=== PATIENT | female | born 1940 | race Caucasian/White ===

== ENCOUNTER 2017-08-01 11:25 | Emergency (ER) | payer MEDICARE, OTHER ==
[~2017-08-01] VITALS: Ht 177.8 cm; Wt 61.2 kg
[~2017-08-01 11:25] MED LIST: ACE325 PO; AMLO2.5T74 PO; ASPI-1471 PO; ASPI-715 PO; ASPI81TA86 PO; AZIT-1 PO; CALC-762 PO; CHOL10005 PO; CHOL200021 PO; CYAN100088 PO; CYAN25004; ERGO2000 PO; EZET10TA41 PO; EZET1TAB53 PO; EZET1TAB55 PO; FISH OIL1 CAP PO; FLU180SY9 IM; HYDR-4309 PO; LEVO50TA80 PO; LEVO75TA68 PO; LEVO75TA73 PO; LEVO88TA43 PO; LEVO88TA45 PO; LOR5/325 PO; LOSA100T67 PO; LOSA100T68 PO; NIA500 PO; NIAC500T12 PO; NIT4 SL; NITR0.4T3 SL; OFF COUMADIN; OMEP-137 PO; OMEP-153 PO; PRAV10TA46 PO; ROS10 PO; ROSU5TAB8 PO; SIMV-1 PO; SIMV-54 PO; SULF-198 PO; TRIA5T TOP; VALS-25 PO; VALS160T20 PO; WAR5 PO; WAR75 PO; WARF-18 PO; [UNRECOGNIZED DRUG - CODE] PO; [UNRECOGNIZED DRUG - CODE] PO; [UNRECOGNIZED DRUG - CODE] PO; [UNRECOGNIZED DRUG - CODE] PO; [UNRECOGNIZED DRUG - REMARK]
--- NOTE | 2017-08-01 11:38 | ER Report ---
History and Physical Time Seen By MD: 11:37 Hx. of Stated Complaint: cough and weakness since thursday. associated body aches. patient just got off antibiotics for uti HPI/ROS CHIEF COMPLAINT: Cough, shortness of breath HISTORY OF PRESENT ILLNESS: 77-year-old female patient presents to emergency room with complaint of cough, shortness of breath. Patient states been going on for the past several days. Patient states that she felt worse Thursday, and felt better and Thursday and then she felt worse this morning when she woke up. Patient states she's been coughing. She states it is a dry cough. She denies having any fevers, chills, nausea, vomiting or diarrhea. Patient states that on Thursday she felt pain to the left arm, and was concerned about her heart. She states that she is taken some yhws-cig-pugbdbz cold medication with no improvement. Patient has a history of A. fib, she did have a bout of A. fib on and Thursday, however when that stopped last night she felt significant improvement. REVIEW OF SYSTEMS: Respiratory: No cough, no dyspnea. Cardiovascular: No chest pain, no palpitations. Gastrointestinal: No vomiting, no abdominal pain. Musculoskeletal: No back pain. Allergies: Coded Allergies: SHAHRZAD Inhibitors (Unverified Allergy, Intermediate, cough, 03/06/14) niacin (Verified Allergy, Intermediate, Itching, 12/02/16) clindamycin (Verified Allergy, Mild, DIARRHEA, 12/22/13) rosuvastatin (Verified Adverse Reaction, Intermediate, Muscle symptoms, 08/04/16) tetracycline (Verified Adverse Reaction, Intermediate, LOWERED BLOOD COUNT , 12/22/13) Uncoded Allergies: PABA (Allergy, Mild, 04/03/11) Home Meds Active Scripts Pravastatin Sodium (PRAVASTATIN SODIUM) 10 Mg Tablet, 10 MG PO QDAY for 30 Days , TAB Prov:DANUTA AGUILERA PHARMDoreen 07/08/17 Cholecalciferol (Vitamin D3) (VITAMIN D3) 1,000 Unit Tablet, 1 TAB PO DAILY, #1 TAB Prov:HANNAH BARAHONA MD 05/25/17 Sotalol Hcl (SOTALOL) 160 Mg Tablet, 1 TAB PO BID, #180 TAB 4 Refills Prov:HANNAH BARAHONA MD 02/20/17 Warfarin Sodium (WARFARIN SODIUM) 5 Mg Tablet, 1-1.5 TAB PO QDAY, #108 TAB 3 Refills take 1 tablet daily except 1.5 tablets on MWF or as instructed based on INR Prov:HANNAH BARAHONA MD 02/20/17 Levothyroxine Sodium (SYNTHROID) 88 Mcg Tablet, 0.5-1 TAB PO QDAY, #90 TAB 3 Refills Prov:HANNAH BARAHONA MD 02/20/17 Losartan Potassium (LOSARTAN POTASSIUM) 100 Mg Tablet, 1 TAB PO QDAY, #90 TAB 3 Refills Prov:HANNAH BARAHONA MD 02/20/17 Ezetimibe (ZETIA) 10 Mg Tablet, 10 MG PO QDAY, #90 TAB 3 Refills Prov:HANNAH BARAHONA MD 02/20/17 Nitroglycerin (NITROGLYCERIN) 0.4 Mg Tab.subl, 1 TAB SL Q5MIN Y for chest pain, #25 TAB 0 Refills Prov:HANNAH BARAHONA MD 02/20/17 Reported Medications Aspirin (ASPIR 81) 81 Mg Tablet.dr, 1 TAB PO QDAY, TAB 08/04/16 Cyanocobalamin (Vitamin B-12) (B-12) 1,000 Mcg Tablet.er, 1 TAB PO twice a week 08/04/16 Past Medical/Surgical History Patient has a past medical history of CAD, angina, intermittent A. fib, hypertension, hyperlipidemia, reflux, vaginal prolapse, arthritis, osteoporosis , hypothyroidism, anxiety. Patient has surgical history of left duct removed from left breast, foot surgery , hysterectomy, colonoscopy, laparoscopy, coronary stent. Patient has a family medical history of cancer, stroke, diabetes. Reviewed Nurses Notes: Yes Hx Smoking: No Smoking Status: Never Smoker Constitutional Vital Sign - Last 24 Hours 08/01/17 08/01/17 08/01/17 08/01/17 11:29 11:35 11:55 12:00 Temp 97.4 Pulse 58 58 Resp 20 11 B/P (MAP) 148/77 (100) 148/77 130/66 (87) Pulse Ox 96 95 O2 Delivery Room Air 08/01/17 08/01/17 08/01/17 08/01/17 12:25 12:37 12:55 13:00 Pulse 55 54 Resp 15 14 B/P (MAP) 148/76 (100) 142/105 (117) Pulse Ox 94 96 08/01/17 13:26 Pulse 54 B/P (MAP) 117/69 (85) Pulse Ox 95 O2 Delivery Room Air Physical Exam General Appearance: The patient is alert, has no immediate need for airway protection and no current signs of toxicity. ENT: Tympanic membranes are pearly-benoit, auditory canals are patent, mucous membranes are moist. Respiratory: Chest is non tender, lungs are clear to auscultation. Cardiac: regular rate and rhythm Gastrointestinal: Abdomen is soft and non tender, no masses, bowel sounds normal. Musculoskeletal: Neck: Neck is supple and non tender. Extremities have full range of motion and are non tender. Skin: No rashes or lesions. DIFFERENTIAL DIAGNOSIS: After history and physical exam differential diagnosis was considered for shortness of breath including but not limited to pulmonary infectious process, COPD, asthma, pulmonary embolus and congestive heart failure. Medical Decision Making Data Points Result Diagram: 08/01/17 1133 08/01/17 1133 Laboratory Hematology Test 08/01/17 00:00 08/01/17 11:33 Influenza Type A Antigen Negative (NEGATIVE) Influenza Type B Antigen Negative (NEGATIVE) Red Blood Count 3.94 M/uL (4.17-5.56) Mean Corpuscular Volume 96.9 fL (80.0-96.0) Mean Corpuscular Hemoglobin 33.5 pg (26.0-33.0) Mean Corpuscular Hemoglobin Concent 34.5 g/dL (32.0-36.0) Red Cell Distribution Width 12.9 % (11.5-14.5) Mean Platelet Volume 8.7 fL (7.2-11.1) Neutrophils (%) (Auto) 68.3 % (39.4-72.5) Lymphocytes (%) (Auto) 15.9 % (17.6-49.6) Monocytes (%) (Auto) 8.2 % (4.1-12.4) Eosinophils (%) (Auto) 7.1 % (0.4-6.7) Basophils (%) (Auto) 0.5 % (0.3-1.4) Nucleated RBC Relative Count (auto) 0.0 /100WBC Neutrophils # (Auto) 5.3 K/uL (2.0-7.4) Lymphocytes # (Auto) 1.2 K/uL (1.3-3.6) Monocytes # (Auto) 0.6 K/uL (0.3-1.0) Eosinophils # (Auto) 0.6 K/uL (0.0-0.5) Basophils # (Auto) 0.0 K/uL (0.0-0.1) Nucleated RBC Absolute Count (auto) 0.00 K/uL Peripheral Blood Smear No Y/N Prothrombin Time 33.2 seconds (12.0-14.4) Prothromb Time International Ratio 3.11 Sodium Level 134 mmol/L (137-145) Potassium Level 4.4 mmol/L (3.5-5.0) Chloride Level 100 mmol/L (98-107) Carbon Dioxide Level 25 mmol/L (22-31) Blood Urea Nitrogen 17 mg/dl (7-18) Creatinine 1.00 mg/dl (0.52-1.04) Glomerular Filtration Rate Calc 53.5 Random Glucose 99 mg/dl (75-110) Calcium Level 8.8 mg/dl (8.4-10.2) Total Bilirubin 0.9 mg/dl (0.2-1.3) Aspartate Amino Transf (AST/SGOT) 30 U/L (0-35) Alanine Aminotransferase (ALT/SGPT) 39 U/L (0-56) Alkaline Phosphatase 67 U/L (0-126) Troponin I < 0.012 ng/ml Total Protein 6.9 gm/dl (6.3-8.2) Albumin 3.5 g/dl (3.5-5.0) Chemistry Test 08/01/17 00:00 08/01/17 11:33 Influenza Type A Antigen Negative (NEGATIVE) Influenza Type B Antigen Negative (NEGATIVE) White Blood Count 7.8 k/uL (4.5-11.0) Red Blood Count 3.94 M/uL (4.17-5.56) Hemoglobin 13.2 g/dL (12.0-16.0) Hematocrit 38.2 % (34.0-47.0) Mean Corpuscular Volume 96.9 fL (80.0-96.0) Mean Corpuscular Hemoglobin 33.5 pg (26.0-33.0) Mean Corpuscular Hemoglobin Concent 34.5 g/dL (32.0-36.0) Red Cell Distribution Width 12.9 % (11.5-14.5) Platelet Count 194 K/uL (150-450) Mean Platelet Volume 8.7 fL (7.2-11.1) Neutrophils (%) (Auto) 68.3 % (39.4-72.5) Lymphocytes (%) (Auto) 15.9 % (17.6-49.6) Monocytes (%) (Auto) 8.2 % (4.1-12.4) Eosinophils (%) (Auto) 7.1 % (0.4-6.7) Basophils (%) (Auto) 0.5 % (0.3-1.4) Nucleated RBC Relative Count (auto) 0.0 /100WBC Neutrophils # (Auto) 5.3 K/uL (2.0-7.4) Lymphocytes # (Auto) 1.2 K/uL (1.3-3.6) Monocytes # (Auto) 0.6 K/uL (0.3-1.0) Eosinophils # (Auto) 0.6 K/uL (0.0-0.5) Basophils # (Auto) 0.0 K/uL (0.0-0.1) Nucleated RBC Absolute Count (auto) 0.00 K/uL Peripheral Blood Smear No Y/N Prothrombin Time 33.2 seconds (12.0-14.4) Prothromb Time International Ratio 3.11 Glomerular Filtration Rate Calc 53.5 Calcium Level 8.8 mg/dl (8.4-10.2) Total Bilirubin 0.9 mg/dl (0.2-1.3) Aspartate Amino Transf (AST/SGOT) 30 U/L (0-35) Alanine Aminotransferase (ALT/SGPT) 39 U/L (0-56) Alkaline Phosphatase 67 U/L (0-126) Troponin I < 0.012 ng/ml Total Protein 6.9 gm/dl (6.3-8.2) Albumin 3.5 g/dl (3.5-5.0) Coagulation Test 08/01/17 11:33 Prothrombin Time 33.2 seconds Prothromb Time International Ratio 3.11 EKG/Imaging EKG Interpretation 12 lead EKG: Rhythm: Sinus bradycardia with a ventricular rate of 57 bpm [place]: normal QRS: normal ST segments: normal Imaging 2 VIEWS CHEST INDICATION: Respiratory distress. COMPARISON: 10/20/2016. FINDINGS: Cardiomediastinal silhouette and pulmonary vessels within normal limits. There is a persistent nodular density seen in the left lower lobe which is unchanged. This appears to be more dense and possibly calcified. No focal areas of consolidation. Postinflammatory changes seen in both apices. There is no pneumothorax or pleural effusion. No other nodular opacities. Upper abdomen is unremarkable. No acute bony abnormality. IMPRESSION: 1. No acute cardiopulmonary process. 2. Persistent nodular opacity seen in the left lower lobe which may be calcified. This could represent a calcified pleural plaque.. It may be beneficial to perform a follow-up chest x-ray in 6 months for reevaluation as this does appear to be stable from September 2016 but was not appreciated back in 2010. Report Dictated By: López Latham at 08/01/2017 12:43 PM Report E-Signed By: López Latham at 08/01/2017 12:48 PM ED Course/Re-evaluation ED Course Patient was admitted to exam room, history and physical were obtained. Differential diagnoses were considered. On examination patient has lungs are clear, abdomen soft nontender. A CBC, CMP, and influenza screen, chest x-ray, troponin, EKG were done. Chest x-ray was negative, labs were unremarkable. I discussed findings with the patient. [place] there were likely looking at a viral illness. We'll go ahead and treat her symptomatically. She is return to emergency room if condition worsens. As I was talking with the patient patient asked what her INR was. I was disheartened to admit the head failed to order a INR. That was ordered and came back at 3.11. I discussed findings with patient. Patient states she'll go ahead and continue taking medication as prescribed and she'll follow-up with her primary care provider as previously scheduled in 1-2 weeks. Decision to Disposition Date: Aug 01, 2017 Decision to Disposition Time: 13:05 Depart Departure Latest Vital Signs Vital Signs Date Time Temp Pulse Resp B/P (MAP) Pulse Ox O2 Delivery O2 Flow Rate FiO2 08/01/17 13:26 54 117/69 (85) 95 Room Air 08/01/17 12:55 14 08/01/17 11:35 97.4 Impression: Primary Impression: Upper respiratory infection Condition: Improved Disposition: HOME OR SELF-CARE Referrals: HANNAH BARAHONA MD (PCP) Patient Instructions: Upper Respiratory Infection (ED) Additional Instructions: Increase fluid intake. Get plenty of rest. Follow up with your primary care provider in the next week. Continue with your current medications. Return to the ER if condition worsens. Problem Qualifiers Primary Impression: Upper respiratory infection URI type: unspecified viral URI Qualified Codes: J06.9 - Acute upper respiratory infection, unspecified LAYA JOLLY Aug 01, 2017 11:38
[2017-08-01 11:58] LABS: PLATELET COUNT, AUTOMATED 194 K/uL (150-450)
--- NOTE | 2017-08-01 12:26 | EKG ---
FACILITY: [facility] - [place] PATIENT NAME: EDITH FREITAS : [id number] MR: [id number] V: [id number] EXAM DATE: ORDERING PHYSICIAN: LAYA JOLLY TECHNOLOGIST: YAEL Villarreal Reason : PNA? Blood Pressure : / mmHG Vent. Rate : 057 BPM Atrial Rate : 057 BPM P-R Int : 180 ms QRS Dur : 086 ms QT Int : 464 ms P-R-T Axes : 074 064 064 degrees QTc Int : 451 ms Sinus bradycardia Nonspecific ST findings diffusely No previous ECGs available Confirmed by DARNELL DAVIES ([id number]) on 08/01/2017 12:57:23 PM Referred By: LAYA Confirmed By:DARNELL DAVIES
--- NOTE | 2017-08-01 12:53 | RADIOLOGY IMAGING REPORT ---
FACILITY: [facility] [place] PATIENT NAME: Nazanin Castro : 1940 MR: [id number] V: [id number] EXAM DATE: ORDERING PHYSICIAN: LAYA JOLLY TECHNOLOGIST: Location: [facility] [place] Patient: Nazanin Castro : 1940 Visit/Account:[id number] Date of Sevice: 08/01/2017 2 VIEWS CHEST INDICATION: Respiratory distress. COMPARISON: 10/20/2016. FINDINGS: Cardiomediastinal silhouette and pulmonary vessels within normal limits. There is a persistent nodular density seen in the left lower lobe which is unchanged. This appears to be more dense and possibly calcified. No focal areas of consolidation. Postinflammatory changes seen in both apices. There is no pneumothorax or pleural effusion. No other nodular opacities. Upper abdomen is unremarkable. No acute bony abnormality. IMPRESSION: 1. No acute cardiopulmonary process. 2. Persistent nodular opacity seen in the left lower lobe which may be calcified. This could represen t a calcified pleural plaque.. It may be beneficial to perform a follow-up chest x-ray in 6 months fo r reevaluation as this does appear to be stable from September 2016 but was not appreciated back in 2010. Report Dictated By: López Latham at 08/01/2017 12:43 PM Report E-Signed By: López Latham at 08/01/2017 12:48 PM WSN:[id number]
[2017-08-01 13:13] LABS: INR 3.11
[2017-08-01 13:26] VITALS: BP 117/69
== END 2017-08-01 13:31 | disposition home or self-care (01) ==
LOC: ER 11:35
DX: J06.9 Acute upper respiratory infection, unspecified (principal)
CPT/HCPCS: 71046; 82040; 82247; 82310; 82374; 82435; 82565; 82947; 84075; 84132; 84155; 84295; 84450; 84460; 84484; 84520; 85025; 85610; 87502; 93005; 99284

== ENCOUNTER → 2017-08-10 | Outpatient (CLI) | payer MEDICARE, OTHER | LOC: LAB 09:41 | PROVIDERS: ATTEND Internal Medicine Cardiovascular Disease | DX: I25.10 Atherosclerotic heart disease of native coronary artery without angina pectoris (principal); I48.0 Paroxysmal atrial fibrillation; I10 Essential (primary) hypertension | CPT/HCPCS: 36415; 82550 ==

== ENCOUNTER → 2017-10-07 | Outpatient (CLI) | payer MEDICARE, OTHER ==
[~2017-10-07] MED LIST changes: -WARF-18 PO; +WARF5TAB23 PO
--- NOTE | 2017-10-07 10:21 | RADIOLOGY IMAGING REPORT ---
FACILITY: [facility] - [place] PATIENT NAME: Nazanin Castro : 1940 MR: [id number] V: [id number] EXAM DATE: ORDERING PHYSICIAN: HANNAH BARAHONA TECHNOLOGIST: Location: [facility] - [place] Patient: Nazanin Castro : 1940 Visit/Account:[id number] Date of Sevice: 10/07/2017 LIVER HISTORY: Elevated liver enzymes recent statin COMPARISON: None. FINDINGS: Gallbladder: Unremarkable; no stones or sludge. Liver: Negative. Common duct: Normal, 3.5 mm diameter. Pancreas: Partially obscured by bowel, visualized aspects unremarkable. Right kidney: Right kidney appears unremarkable measuring 12.5 cm in length Upper abdominal aorta and IVC: Patent. Ascites: None visualized. IMPRESSION: Unremarkable right upper quadrant ultrasound Report Dictated By: Jessika Alvarez MD at 10/07/2017 10:14 AM Report E-Signed By: Jessika Alvarez MD at 10/07/2017 10:16 AM WSN:[email or web address]
== END ==
LOC: US 01:18
PROVIDERS: ATTEND Emergency Medicine
DX: R74.8 Abnormal levels of other serum enzymes (principal)
CPT/HCPCS: 76705

== ENCOUNTER → 2017-12-10 | Outpatient (CLI) | payer MEDICARE, OTHER ==
[~2017-12-10] MED LIST changes: +FAMC500T18 PO; +LEVO25TA61 PO; +PRED-1 PO
== END ==
LOC: LAB 15:30
PROVIDERS: ATTEND Emergency Medicine
DX: E03.9 Hypothyroidism, unspecified (principal)
CPT/HCPCS: 36415; 84443

== ENCOUNTER → 2017-12-11 | Outpatient (CLI) | payer MEDICARE, OTHER | LOC: AUD 08:27 | PROVIDERS: ATTEND Emergency Medicine | DX: H91.20 Sudden idiopathic hearing loss, unspecified ear (principal) | CPT/HCPCS: 92557; 92570 ==

== ENCOUNTER → 2017-12-18 | Outpatient (CLI) | payer MEDICARE, OTHER | LOC: AUD 14:00 | PROVIDERS: ATTEND Otolaryngology | DX: H91.91 Unspecified hearing loss, right ear (principal) | CPT/HCPCS: 92552 ==

== ENCOUNTER → 2017-12-25 | Outpatient (CLI) | payer MEDICARE, OTHER ==
[~2017-12-25] MED LIST changes: +GADOBENATE 529MG/1ML 15ML VIAL IVP ONE
--- NOTE | 2017-12-25 15:33 | RADIOLOGY IMAGING REPORT ---
FACILITY: [facility] - [place] PATIENT NAME: Nazanin Castro : 1940 MR: [id number] V: [id number] EXAM DATE: ORDERING PHYSICIAN: KATRIN MENCHACA TECHNOLOGIST: Location: [facility] - [place] Patient: Nazanin Castro : 1940 Visit/Account:[id number] Date of Sevice: 12/25/2017 SELLA IAC W W/O CONTRAST Comparisons: None. Additional pertinent history: Sensorineural hearing loss on the right. Also history of sinus congest ion. TECHNIQUE: Multiplanar, multisequence brain MRI was performed with and without gadolinium contrast. Dedicated thin section imaging was performed through the internal auditory canals with axial and johana nal imaging. CONTRAST: 14 ml of MultiHance. FINDINGS: Sagittal midline structures and craniocervical junction: Negative. Midline shift: None. Ventricles: Negative. Brain parenchyma: Diffusion weighted imaging: Negative. Gradient sequence: Not performed T2 weighted FLAIR images: Scattered foci of abnormal increased T2 signal within the periventricular and subcortical white matter, nonspecific but likely representing small vessel ischemic change on a chronic basis. Dedicated imaging through the internal auditory canals: Seventh and eighth cranial nerves: Negative. Semicircular canals/cochlea: Negative Fifth cranial nerves/Meckel's caves: Negative Cerebellopontine angles: Negative Pathologic enhancement: Negative Extra-axial spaces: Negative. Dural venous sinuses and major arterial flow voids: Negative. Intracranial enhancement: Negative.. Mastoid air cells and paranasal sinuses: Complete opacification of the right maxillary sinus with fin dings compatible with nonobstructive pattern at the level of the right ostiomeatal complex with opaci fication of the anterior ethmoid air cells and the right frontal sinus. There is enhancement of the underlying mucosal without a clearly evident enhancing mass. Polypoid lesion is felt present within the region of the right maxillary antrum which could represent an antrochoanal polyp. CT the paranas al sinuses would be of benefit for further evaluation. Surrounding soft tissues and orbits: Negative. Impression: 1. Findings of obstruction at the level of the right ostiomeatal complex with opacification of the r ight maxillary sinus as well as the anterior right ethmoid air cells and the right frontal sinus. 2. Expansile lesion felt present in the region of the right maxillary antrum which could represent u nderlying antrochoanal polyp. CT the paranasal sinuses would be of benefit for further evaluation. 3. No evidence of acute intracranial pathology. 4. Normal imaging of the internal auditory canals. Report Dictated By: Presley Narvaez MD at 12/25/2017 3:23 PM Report E-Signed By: Presley Narvaez MD at 12/25/2017 3:28 PM WSN:[id number]
== END ==
LOC: MRI 00:15
PROVIDERS: ATTEND Otolaryngology
DX: J32.0 Chronic maxillary sinusitis (principal)
CPT/HCPCS: 36415; 70553; 82565; A9577

== ENCOUNTER → 2017-12-29 | Outpatient (CLI) | payer MEDICARE, OTHER ==
[~2017-12-29] MED LIST changes: -GADOBENATE 529MG/1ML 15ML VIAL IVP ONE
== END ==
LOC: AUD 12:20
PROVIDERS: ATTEND Otolaryngology
DX: H90.41 Sensorineural hearing loss, unilateral, right ear, with unrestricted hearing on the contralateral side (principal)
CPT/HCPCS: 92552

== ENCOUNTER → 2018-01-26 | Outpatient (CLI) | payer MEDICARE, OTHER ==
[~2018-01-26] MED LIST changes: +LEVO50TA86 PO
== END ==
LOC: LAB 09:32
PROVIDERS: ATTEND Emergency Medicine
DX: E03.9 Hypothyroidism, unspecified (principal)
CPT/HCPCS: 36415; 84443

== ENCOUNTER 2018-02-15 01:26 | Outpatient (RCR) | payer MEDICARE, OTHER ==
[2018-02-15] MEDS ORDERED: [UNRECOGNIZED DRUG - CODE] PO (08:39)
[2018-02-15] MEDS ORDERED: LOSA100T67 PO (08:43)
[2018-02-15] MEDS ORDERED: REGADENOSON 0.4 MG/5 ML SYR ONE (12:16)
--- NOTE | 2018-02-15 16:33 | RT STRESS TEST REPORT ---
FACILITY: [facility] PATIENT NAME: EDITH FREITAS : [id number] MR: [id number] V: [id number] EXAM DATE: ORDERING PHYSICIAN: DARNELL DAVIES TECHNOLOGIST: Acquisition Time: 2018-02-15 14:25:46 Total Exercise Time: 00:01:00 Test Indications: Screening for CAD Medications: ASA ZETIA LOSARTAN NITRO WARFARIN SOTALOL SYNTHROID Protocol: LEXISCAN Max HR: 076 BPM 53% of Pred: 141 BPM Max BP: 198/090 mmHG Max Work Load: 1.0 METS Stress was performed using Lexiscan protocol. She experienced some chest tightness and some tightness in her limbs as well. This persisted for several minutes before resolving. No EKG changes were noted. No dysrhythmias were noted. Await [employer] w images. Confirmed by DARNELL DAVIES ([id number]) on 02/15/2018 4:32:33 PM Referred By: ALLIE HITCHCOCK Overread By: DARNELL DAVIES
--- NOTE | 2018-02-16 17:56 | RADIOLOGY IMAGING REPORT ---
FACILITY: [facility] PATIENT NAME: Nazanin Castro : 1940 MR: [id number] V: [id number] EXAM DATE: ORDERING PHYSICIAN: ALLIE HITCHCOCK TECHNOLOGIST: Location: [facility] - [place] Patient: Nazanin Castro : 1940 Visit/Account:[id number] Date of Sevice: 02/15/2018 EXAMINATION: Single isotope SPECT imaging with Regadenoson infusion and gated SPECT imaging. DATE OF EXAMINATION: February 16, 2018. DATE OF INTERPRETATION: February 16, 2018. REQUESTING PHYSICIAN: ALLIE HITCHCOCK. INDICATION: The patient is a 77-year-old female evaluated for CAD. PROCEDURE: After informed consent the patient received an intravenous injection of 12.2 mCi of Tc-99 m sestamibi followed at an appropriate time interval by rest imaging. The patient then subsequently received an intravenous infusion of 0.4 mg of Regadenoson per protocol without complication. Resting heart rate was 51 bpm with a peak heart rate of 76 bpm. Blood pressure at rest was 198 / 90 and fol lowing infusion was 137 / 77. Baseline EKG demonstrates normal sinus rhythm. There were no diagnost ic EKG changes of ischemia following infusion. Symptoms were nonspecific. The patient then received an intravenous injection of 30.4 mCi of Tc-99m sestamibi followed by stress imaging. RAW DATA: Examination of the summed raw data revealed a good quality study. MYOCARDIAL PERFUSION: The tomographic images demonstrate normal perfusion both at rest and at stress . GATED IMAGES: The gated images demonstrate an ejection fraction calculated at 70% or greater without wall motion abnormalities. IMPRESSION: 1. Baseline EKG shows normal sinus rhythm without significant changes during stress. 2. Normal myocardial perfusion scan. 3. Normal LV systolic function; LVEF hyperdynamic at 70% or greater%. 4. Based on the results of this exam, the patient appears to be at low risk for future cardiovascular events. Report Dictated By: Phillip Carter MD at 02/16/2018 5:49 PM Report E-Signed By: Phillip Carter MD at 02/16/2018 5:52 PM WSN:[id number]
--- NOTE | 2018-02-17 13:00 | RADIOLOGY IMAGING REPORT ---
FACILITY: [facility] PATIENT NAME: Nazanin Castro : 1940 MR: [id number] V: [id number] EXAM DATE: ORDERING PHYSICIAN: ALLIE HITCHCOCK TECHNOLOGIST: Location: [facility] Patient: Nazanin Castro : 1940 Visit/Account:[id number] Date of Sevice: 02/17/2018 Exam type: ARTERIAL SEGMENTAL PRESSURES History: Burning sensation of the feet Comparison: None. Findings: Segmental pressure in the right brachial artery is 199 mmHg. The segmental pressure in the left brac hial artery is 179 mmHg. In the right leg there is a pressure gradient of 38 between the right thigh and above the right knee. There is a pressure gradient of 32 from below the right knee to the right posterior tibial artery. The ankle-brachial index on the right is 0.94. The TBI on the right is 0.91 There is a pressure gradient of 34 between the left ankle and the left dorsalis pedis artery. CRYSTAL on the left is 0.99 and the TBI on the left is 0.83 There is mild dampening of the PVR waveforms at the great toes IMPRESSION: 1. There is a pressure gradient of 38 between the right thigh and above the right knee There is a pressure gradient of 32 below the right knee to the right posterior tibial artery Is a pressure gradient of 34 between the left ankle on the left results pedis artery CRYSTAL on the right 0.94 and on the left 0.99 TBI in the right 0.91 and on the left 0.83 Report Dictated By: Jessika Alvarez MD at 02/17/2018 11:29 AM Report E-Signed By: Jessika Alvarez MD at 02/17/2018 12:56 PM WSN:[email or web address]
[2018-02-23] MEDS ORDERED: EZET10TA41 PO (10:19)
[2018-02-23] MEDS ORDERED: VARI50KI IM (10:27)
== END 2018-02-17 18:00 | disposition home or self-care (01) ==
LOC: US 01:26 → EDSTATUS 14:00 → US 18:00
PROVIDERS: ATTEND Internal Medicine Cardiovascular Disease
DX: I25.10 Atherosclerotic heart disease of native coronary artery without angina pectoris (principal); R20.8 Other disturbances of skin sensation
CPT/HCPCS: 78452; 93017; 93923; A9500; J2785

== ENCOUNTER → 2018-03-11 | Outpatient (CLI) | payer MEDICARE, OTHER ==
[~2018-03-11] MED LIST changes: +VARI50KI IM
== END ==
LOC: LAB 08:59
PROVIDERS: ATTEND Emergency Medicine
DX: E03.9 Hypothyroidism, unspecified (principal)
CPT/HCPCS: 36415; 84443

== ENCOUNTER 2018-05-04 11:59 | Emergency (ER) | payer MEDICARE, OTHER ==
[~2018-05-04 11:59] MED LIST changes: -AMLO2.5T74 PO; +AMLO2.5T76 PO; +CEFU500T10 PO; +FLU180SY11 IM; -HYDR-4309 PO; +HYDR-653 PO; -LOSA100T67 PO; +LOSA100T69 PO
--- NOTE | 2018-05-04 13:29 | ER Report ---
History and Physical Time Seen By MD: 13:29 Hx. of Stated Complaint: TWISTED l ANKLE IN PARKING LOT OF [facility], AT 1130 TODAY HPI/ROS This is an 78-year-old female on Coumadin for atrial fibrillation who presents to the emergency department with pain in her left ankle after sustaining an inversion injury while walking through a parking lot today. Allergies: Coded Allergies: niacin (Verified Allergy, Intermediate, Itching, RASH, 05/15/18) SHAHRZAD Inhibitors (Unverified Adverse Reaction, Intermediate, cough, 05/15/18) Xbfrbch-Beg-Mmx Reductase Inhibitor (Verified Adverse Reaction, Intermediate, WEAKNESS IN LEGS, 05/15/18) rosuvastatin (Verified Adverse Reaction, Intermediate, Muscle symptoms, 05/15/18) tetracycline (Verified Adverse Reaction, Intermediate, LOWERED BLOOD COUNT, 05/15/18) clindamycin (Verified Adverse Reaction, Mild, DIARRHEA, 05/15/18) Uncoded Allergies: PABA (Allergy, Mild, RASH, 03/31/18) FOUND IN SUN SCREENS Home Meds Active Scripts Warfarin Sodium (WARFARIN SODIUM) 5 Mg Tablet, 1-1.5 TAB PO QDAY, #96 TAB 3 Refills take 1 tablet daily except 1.5 tablets on MWF or as instructed based on INR Prov:HANNAH BARAHONA MD 05/12/18 Levothyroxine Sodium (LEVOTHYROXINE SODIUM) 50 Mcg Tablet, 50 MCG PO QDAY, #90 TAB 3 Refills Prov:HANNAH BARAHONA MD 03/11/18 Ezetimibe (ZETIA) 10 Mg Tablet, 10 MG PO QDAY, #90 TAB 3 Refills Prov:HANNAH BARAHONA MD 02/23/18 Losartan Potassium (LOSARTAN POTASSIUM) 100 Mg Tablet, 1 TAB PO QDAY, #90 TAB 3 Refills Prov:HANNAH BARAHONA MD 02/15/18 Sotalol Hcl (SOTALOL) 160 Mg Tablet, 1 TAB PO BID, #180 TAB 3 Refills Prov:HANNAH BARAHONA MD 02/15/18 Cholecalciferol (Vitamin D3) (VITAMIN D3) 1,000 Unit Tablet, 1 TAB PO DAILY, #1 TAB Prov:HANNAH BARAHONA MD 05/25/17 Nitroglycerin (NITROGLYCERIN) 0.4 Mg Tab.subl, 1 TAB SL Q5MIN PRN for chest pain, #25 TAB 0 Refills Prov:HANNAH BARAHONA MD 02/20/17 Reported Medications Aspirin (ASPIR 81) 81 Mg Tablet.dr, 1 TAB PO QDAY, TAB 08/04/16 Cyanocobalamin (Vitamin B-12) (B-12) 1,000 Mcg Tablet.er, 1 TAB PO twice a week 08/04/16 Discontinued Scripts Cephalexin 500 Mg Tab (KEFLEX 500 MG TAB) 500 Mg Tablet, 500 MG PO Q6H, #28 TAB 0 Refills Prov:LAURENT CLINTONSON Fiorella TOURIST INFORMATION OFFICER-BC 05/15/18 Hx Smoking: No Smoking Status: Never Smoker Exposure to Second Hand Smoke?: Yes (IN CHILDHOOD) Hx Substance Use Disorder: No Hx Alcohol Use: No Constitutional Physical Exam GE: a/ox3 in NAD EX: TTP at the medial and lateral malleolus, pulses symmetric, no lacerations Medical Decision Making ED Course/Re-evaluation ED Course closed fracture of ankle, will splint and f/u with PBJ Decision to Disposition Date: May 04, 2018 Decision to Disposition Time: 15:20 Depart Departure Latest Vital Signs Impression: Primary Impression: Fibula fracture Condition: Improved Disposition: HOME OR SELF-CARE Referrals: HANNAH BARAHONA MD (PCP) Patient Instructions: Leg Fracture (ED) Problem Qualifiers Primary Impression: Fibula fracture Encounter type: initial encounter Fibula location: distal Fracture type: closed Fracture morphology: unspecified fracture morphology Laterality: left Qualified Codes: S82.832A - Other fracture of upper and lower end of left fibula, initial encounter for closed fracture AARON DAVID MD May 04, 2018 13:29
--- NOTE | 2018-05-04 13:30 | RADIOLOGY IMAGING REPORT ---
FACILITY: [facility] PATIENT NAME: Nazanin Castro : 1940 MR: [id number] V: [id number] EXAM DATE: ORDERING PHYSICIAN: JANET DAVID TECHNOLOGIST: Location: [facility] Patient: Nazanin Castro : 1940 Visit/Account:[id number] Date of Sevice: 05/04/2018 Exam type: ANKLE 3 VIEW MIN LEFT History: TWISTED AND FELL Comparison: None. Findings: Is a slightly comminuted oblique fracture through the distal metaphysis of the left fibula with appro ximate 2 mm diastases the fracture fragments and minimal lateral displacement of distal fragment. Th e ankle mortise appears intact. There is a large amount soft tissue swelling over the lateral aspect of the left ankle. Incidentally noted are old postsurgical changes of the base of the left fifth me tatarsal with orthopedic screw IMPRESSION: 1. Slightly comminuted oblique fracture through the distal metaphysis left fibula with approximate 2 mm diastases the fracture fragments and minimal lateral displacement of the distal fragment. There is associated soft tissue swelling. The ankle mortise appears intact Report Dictated By: Jessika Alvarez MD at 05/04/2018 1:24 PM Report E-Signed By: Jessika Alvarez MD at 05/04/2018 1:26 PM WSN:[email or web address]
[2018-05-04 15:19] VITALS: BP 173/86
[2018-05-12] MEDS ORDERED: WARF5TAB23 PO (12:28)
== END 2018-05-04 15:45 | disposition home or self-care (01) ==
LOC: ER 13:34
DX: S82.832A Other fracture of upper and lower end of left fibula, initial encounter for closed fracture (principal); X50.1XXA Overexertion from prolonged static or awkward postures, initial encounter
CPT/HCPCS: 99283; L1930

== ENCOUNTER 2018-05-15 11:14 | Emergency (ER) | payer MEDICARE, OTHER ==
--- NOTE | 2018-05-15 11:23 | ER Report ---
History and Physical Time Seen By MD: 11:23 HPI/ROS CHIEF COMPLAINT: Pain and swelling in the left foot HISTORY OF PRESENT ILLNESS: This is an 78-year-old female presents to the emergency department for pain and swelling of the left foot and lateral malleolus. Patient was recently seen and evaluated in the ED, had a nondisplaced fibular fracture, has followed up with or so, she did have a blister this last week that they did drain on the lateral malleolar area that is now causing some increased pain and swelling as well as increased redness. She also has intermittent left calf pain with significant bruising to the left lower extremity. Patient's left foot is immobilized in a walking boot. Patient is also anticoagulated on Coumadin. Patient denies nausea or vomiting. No chest pain or shortness of breath. No fevers or chills. REVIEW OF SYSTEMS: Respiratory: No cough, no dyspnea. Cardiovascular: No chest pain, no palpitations. Gastrointestinal: No vomiting, no abdominal pain. Musculoskeletal: As above. Allergies: Coded Allergies: niacin (Verified Allergy, Intermediate, Itching, RASH, 05/15/18) SHAHRZAD Inhibitors (Unverified Adverse Reaction, Intermediate, cough, 05/15/18) Qscvbsu-Bsr-Cxs Reductase Inhibitor (Verified Adverse Reaction, Intermediate, WEAKNESS IN LEGS, 05/15/18) rosuvastatin (Verified Adverse Reaction, Intermediate, Muscle symptoms, 05/15/18) tetracycline (Verified Adverse Reaction, Intermediate, LOWERED BLOOD COUNT, 05/15/18) clindamycin (Verified Adverse Reaction, Mild, DIARRHEA, 05/15/18) Uncoded Allergies: PABA (Allergy, Mild, RASH, 03/31/18) FOUND IN SUN SCREENS Home Meds Active Scripts Cephalexin 500 Mg Tab (KEFLEX 500 MG TAB) 500 Mg Tablet, 500 MG PO Q6H, #28 TAB 0 Refills Prov:KEL CLINTON RUBBER CUTTER-BC 05/15/18 Warfarin Sodium (WARFARIN SODIUM) 5 Mg Tablet, 1-1.5 TAB PO QDAY, #96 TAB 3 Refills take 1 tablet daily except 1.5 tablets on MWF or as instructed based on INR Prov:AHNNAH BARAHONA MD 05/12/18 Levothyroxine Sodium (LEVOTHYROXINE SODIUM) 50 Mcg Tablet, 50 MCG PO QDAY, #90 TAB 3 Refills Prov:HANNAH BARAHONA MD 03/11/18 Ezetimibe (ZETIA) 10 Mg Tablet, 10 MG PO QDAY, #90 TAB 3 Refills Prov:HANNAH BARAHONA MD 02/23/18 Losartan Potassium (LOSARTAN POTASSIUM) 100 Mg Tablet, 1 TAB PO QDAY, #90 TAB 3 Refills Prov:HANNAH BARAHONA MD 02/15/18 Sotalol Hcl (SOTALOL) 160 Mg Tablet, 1 TAB PO BID, #180 TAB 3 Refills Prov:HANNAH BARAHONA MD 02/15/18 Cholecalciferol (Vitamin D3) (VITAMIN D3) 1,000 Unit Tablet, 1 TAB PO DAILY, #1 TAB Prov:HANNAH BARAHONA MD 05/25/17 Nitroglycerin (NITROGLYCERIN) 0.4 Mg Tab.subl, 1 TAB SL Q5MIN PRN for chest pain, #25 TAB 0 Refills Prov:HANNAH BARAHONA MD 02/20/17 Reported Medications Aspirin (ASPIR 81) 81 Mg Tablet.dr, 1 TAB PO QDAY, TAB 08/04/16 Cyanocobalamin (Vitamin B-12) (B-12) 1,000 Mcg Tablet.er, 1 TAB PO twice a week 08/04/16 Past Medical/Surgical History The patient has a past medical and surgical history of coronary artery disease, stent placement, mitral valve prolapse, angina, intermittent A. fib, anticoagulation, hypertension, hypercholesterolemia, pneumonia, acid reflux, elevated liver enzymes, kidney stones, urinary tract infections, pelvic prolapse, chronic leg pain and weakness, poor balance, arthritis, osteoporosis, fractures to both feet, back pain, ruptured disc, sciatica, wears glasses, cataract removal, tinnitus, anxiety, colonoscopy, laparoscopy, left foot surgery, sinus surgery, tonsillectomy, left Dr. removed from breast. Reviewed Nurses Notes: Yes Hx Smoking: No Smoking Status: Never Smoker Exposure to Second Hand Smoke?: Yes (IN CHILDHOOD) Hx Substance Use Disorder: No Hx Alcohol Use: No Constitutional Vital Sign - Last 24 Hours 05/15/18 05/15/18 05/15/18 05/15/18 11:20 11:23 11:30 11:45 Temp 98.4 Pulse 61 65 59 Resp 14 B/P (MAP) 185/115 (138) 185/115 193/108 (136) Pulse Ox 99 95 96 O2 Delivery Room Air 05/15/18 05/15/18 05/15/18 05/15/18 12:00 12:15 12:30 12:45 Pulse 56 56 55 B/P (MAP) 169/106 (127) 168/77 (107) Pulse Ox 97 96 94 95 05/15/18 05/15/18 05/15/18 05/15/18 13:00 13:15 13:30 13:45 Pulse 54 57 53 57 B/P (MAP) 174/87 (116) 161/86 (111) Pulse Ox 94 92 95 94 05/15/18 05/15/18 05/15/18 14:00 14:15 14:45 Pulse 57 57 60 Resp 14 B/P (MAP) 149/105 (120) 160/88 (112) Pulse Ox 96 95 95 O2 Delivery Room Air Physical Exam General Appearance: The patient is alert, has no immediate need for airway protection and no current signs of toxicity. Eyes: Pupils equal and round no injection. Respiratory: Chest is non tender, lungs are clear to auscultation. Cardiac: regular rate and rhythm. Gastrointestinal: Abdomen is soft and non tender, no masses, bowel sounds normal. Musculoskeletal: Neck: Neck is supple and non tender. Skin and Extremities left lower extremity with a contusion in multiple stages of healing. Swelling, there is erythema and a mild cellulitic appearance to the left lateral ankle surrounding the blister. Pulses present. Sensation intact. DIFFERENTIAL DIAGNOSIS: After history and physical exam differential diagnosis was considered for DVT, cellulitis and complications from fracture. Medical Decision Making EKG/Imaging Imaging Location: [facility] Patient: Nazanin Castro : 1940 Visit/Account:[id number] Date of Sevice: 05/15/2018 EXAMINATION: VENOUS DOPP LOW LEFT EXTREMITY COMPARISON: None Available HISTORY: Left lower extremity pain. FINDINGS: Standard left lower extremity Doppler ultrasound with color flow and spectral analysis is performed. The common femoral, femoral, and popliteal veins are widely patent and compress appropriately. The visualized calf veins and the proximal greater saphenous vein are patent. No popliteal fluid collection. IMPRESSION: No left lower extremity deep venous thrombosis. Report Dictated By: Villa Lopez MD at 05/15/2018 1:52 PM Report E-Signed By: Villa Lopez MD at 05/15/2018 1:54 PM WSN:[facility] ED Course/Re-evaluation ED Course The patient was admitted to room. A history of physical were obtained. Differential diagnoses were considered. An ultrasound of the left lower extremity was negative for DVT. The blister on the left lateral malleolar area was unroofed, there is some erythema with some cellulitic-appearing tissue surrounding the blister. The area is hot to touch, with some swelling. I did elect to treat the patient for cellulitis with Keflex, she will follow up with h er primary care provider next week. She will also follow up with orthopedics as scheduled. The patient will continue to monitor the wound, she will return to the ER for any other concerns or worsening symptoms. Patient had no other questions or concerns at this time and was discharged home. Decision to Disposition Date: May 15, 2018 Decision to Disposition Time: 14:16 Depart Departure Latest Vital Signs Vital Signs Date Time Temp Pulse Resp B/P (MAP) Pulse Ox O2 Delivery O2 Flow Rate FiO2 05/15/18 14:45 60 14 160/88 (112) 95 Room Air 05/15/18 11:23 98.4 Impression: Primary Impression: Cellulitis of left foot Condition: Improved Disposition: HOME OR SELF-CARE Referrals: HANNAH BARAHONA MD (PCP) New Scripts Cephalexin 500 Mg Tab (KEFLEX 500 MG TAB) 500 Mg Tablet 500 MG PO Q6H, #28 TAB 0 Refills Prov: KEL CLINTON-LILO 05/15/18 Patient Instructions: Cellulitis (ED) Additional Instructions: Please take the Keflex for the skin infection. Continue with your regular medications. Continue to wear the walking boot and follow up with Ortho as scheduled. Follow up with your PCP within one week for reevaluation. Drink plenty of fluids. Get plenty of rest. Return to the ED for any other concerns or worsening symptoms. KEL CLINTONP-BC May 15, 2018 11:23
[2018-05-15] MEDS ORDERED: ONDANSETRON 4 MG ODT TABDP SL ONE (11:45)
[2018-05-15] MEDS ORDERED: APAP/HYDROCODONE 325/5 TAB PO ONE (11:45)
[2018-05-15] MEDS ORDERED: CEPH500T7 PO (13:42)
--- NOTE | 2018-05-15 13:58 | RADIOLOGY IMAGING REPORT ---
FACILITY: [facility] [place] PATIENT NAME: Nazanin Castro : 1940 MR: [id number] V: [id number] EXAM DATE: ORDERING PHYSICIAN: KEL CLINTON TECHNOLOGIST: Location: [facility] [place] Patient: Nazanin Castro : 1940 Visit/Account:[id number] Date of Sevice: 05/15/2018 EXAMINATION: VENOUS DOPP LOW LEFT EXTREMITY COMPARISON: None Available HISTORY: Left lower extremity pain. FINDINGS: Standard left lower extremity Doppler ultrasound with color flow and spectral analysis is p erformed. The common femoral, femoral, and popliteal veins are widely patent and compress appropriately. The v isualized calf veins and the proximal greater saphenous vein are patent. No popliteal fluid collection. IMPRESSION: No left lower extremity deep venous thrombosis. Report Dictated By: Villa Lopez MD at 05/15/2018 1:52 PM Report E-Signed By: Villa Lopez MD at 05/15/2018 1:54 PM WSN:[email or web address]
[2018-05-15 14:45] VITALS: BP 160/88
== END 2018-05-15 14:50 | disposition home or self-care (01) ==
LOC: ER 11:27
DX: L03.116 Cellulitis of left lower limb (principal)
CPT/HCPCS: 93971; 99284; A9270; Q0162; S0119

== ENCOUNTER → 2018-06-09 | Outpatient (CLI) | payer MEDICARE, OTHER ==
[~2018-06-09] MED LIST changes: +CEPH500T7 PO
[2018-06-09 12:06] LABS: INR 2.03
== END ==
LOC: LAB 10:32
PROVIDERS: ATTEND Pharmacist Pharmacotherapy
DX: I48.91 Unspecified atrial fibrillation (principal)
CPT/HCPCS: 36415; 85610

== ENCOUNTER → 2018-06-22 | Outpatient (CLI) | payer MEDICARE, OTHER ==
--- NOTE | 2018-06-22 11:03 | RADIOLOGY IMAGING REPORT ---
FACILITY: [facility] [place] PATIENT NAME: Nazanin Castro : 1940 MR: [id number] V: [id number] EXAM DATE: ORDERING PHYSICIAN: HANNAH BARAHONA TECHNOLOGIST: Location: [facility] Patient: Nazainn Castro : 1940 Visit/Account:[id number] Date of Sevice: 06/22/2018 DEXA Scan Clinical history: Asymptomatic postmenopausal state. Comparison: DEXA scan from 04/16/2015. LUMBAR SPINE: The bone mineral density (BMD) measured from L2-L4 correlates with a Z-score of 1.5 and a T-score of -0.5 which is Normal as defined by the World Health Organization. The corresponding risk of fracture in the lumbar spine is 1-2 times increased compared with a young adult reference population. This v alue has decrease by 4.5 % since the prior study. More than 5% change is considered significant. HIP: Bone mineral density (BMD) measured in the LEFT total hip region correlates with a Z-score two and a T-score of -0.1 which is normal as defined by the World Health Organization. The corresponding risk of fracture in the hip is Not i ncreased compared to a young adult reference population. This value has decrease by 0.1 % since the p rior study. More than 5% change is considered significant. T score left femoral neck -0.5 Bone mineral density (BMD) measured in the Femoral Neck region measures 0.966 g/cm?. IMPRESSION: 1. Lumbar spine: Normal. There has been 4.5% decrease in the bone mineral density since the previou s exam. 2. Left Total Hip: Normal. There has been 0.1% decrease in the bone mineral density since the previ ous exam. 3. Femoral Neck: Bone Mineral Density is 0.966 g/cm? The next DEXA scan of this patient should include the following sites: L2-L4 and the left hip. FRAX? WHO Fracture Risk Assessment Tool link: <http://www.shef.ac.uk/FRAX/tool.jsp?locationValue=9> PLEASE NOTE: 1) The World Health Organization defines low BMD as follows: T-score Normal > -1 Osteopenia < -1 and > -2.5 Osteoporosis < -2.5 without fractures Established osteoporosis < -2.5 with fractures 2) In general, you may wish to consider: Diagnosis Treatment Follow-up DEXA Normal BMD Prevention 2-3 years Osteopenia Prevention/therapy 1-2 years Osteoporosis Therapy Yearly 3) Fracture risk estimated from the T-score is more accurate for vertebral fractures (often spontane ous) than for hip fractures. Report Dictated By: Jessika Alvarez MD at 06/22/2018 10:56 AM Report E-Signed By: Jessika Alvarez MD at 06/22/2018 10:58 AM WSN:[email or web address]
== END ==
LOC: RAD 00:46
PROVIDERS: ATTEND Emergency Medicine
DX: Z78.0 Asymptomatic menopausal state (principal)
CPT/HCPCS: 77080

== ENCOUNTER → 2018-07-06 | Outpatient (CLI) | payer MEDICARE, OTHER ==
[~2018-07-06] MED LIST changes: -LOSA100T69 PO; +LOSA100T75 PO
== END ==
LOC: LAB 16:42
PROVIDERS: ATTEND Emergency Medicine
DX: I10 Essential (primary) hypertension (principal); Z91.89 Other specified personal risk factors, not elsewhere classified; E03.9 Hypothyroidism, unspecified
CPT/HCPCS: 36415; 82306; 82310; 82374; 82435; 82565; 82947; 83970; 84132; 84295; 84443; 84520

== ENCOUNTER 2018-07-23 08:19 | Emergency (ER) | payer MEDICARE, OTHER ==
--- NOTE | 2018-07-23 08:33 | ER Report ---
History and Physical Time Seen By MD: 08:33 Hx. of Stated Complaint: pt cat bit her last night, on r hand(provoked attack), utd on shots HPI/ROS CHIEF COMPLAINT: cat bite HISTORY OF PRESENT ILLNESS: This is an 78 year old female. Het cat bit her last night. Tail got caught when the patient shut a desk drawer. Cat up to date on shots. No other concerns. Area of bite on left index finger near the MCP joint. Normal sensation. Normal movement. Pain and redness of the skin around the bite. Allergies: Coded Allergies: niacin (Verified Allergy, Intermediate, Itching, RASH, 07/23/18) SHAHRZAD Inhibitors (Unverified Adverse Reaction, Intermediate, cough, ) Wmnlbsw-Ama-Qai Reductase Inhibitor (Verified Adverse Reaction, Intermediate, WEAKNESS IN LEGS, 07/23/18) rosuvastatin (Verified Adverse Reaction, Intermediate, Muscle symptoms, 07/23/18) tetracycline (Verified Adverse Reaction, Intermediate, LOWERED BLOOD COUNT, 07/23/18) clindamycin (Verified Adverse Reaction, Mild, DIARRHEA, 07/23/18) Uncoded Allergies: PABA (Allergy, Mild, RASH, 03/31/18) FOUND IN SUN SCREENS Home Meds Active Scripts Amoxicillin/Pot Clav 875-125 Mg Tab (AUGMENTIN 875-125 TABLET) 1 Each Tablet, 1 TAB PO Q12H, #20 TAB 0 Refills Prov:HANG MODI MD 07/23/18 Nitroglycerin (NITROGLYCERIN) 0.4 Mg Tab.subl, 1 TAB SL Q5MIN PRN for chest pain, #25 TAB 1 Refill Prov:DANUTA AGUILERA PHARMD 06/09/18 Warfarin Sodium (WARFARIN SODIUM) 5 Mg Tablet, 1-1.5 TAB PO QDAY, #96 TAB 3 Refills take 1 tablet daily except 1.5 tablets on MWF or as instructed based on INR Prov:HANNAH BARAHONA MD 05/12/18 Levothyroxine Sodium (LEVOTHYROXINE SODIUM) 50 Mcg Tablet, 50 MCG PO QDAY, #90 TAB 3 Refills Prov:HANNAH BARAHONA MD 03/11/18 Ezetimibe (ZETIA) 10 Mg Tablet, 10 MG PO QDAY, #90 TAB 3 Refills Prov:HANNAH BARAHONA MD 02/23/18 Losartan Potassium (LOSARTAN POTASSIUM) 100 Mg Tablet, 1 TAB PO QDAY, #90 TAB 3 Refills Prov:HANNAH BARAHONA MD 02/15/18 Sotalol Hcl (SOTALOL) 160 Mg Tablet, 1 TAB PO BID, #180 TAB 3 Refills Prov:HANNAH BARAHONA MD 02/15/18 Cholecalciferol (Vitamin D3) (VITAMIN D3) 1,000 Unit Tablet, 1 TAB PO DAILY, #1 TAB Prov:HANNAH BARAHONA MD 05/25/17 Reported Medications Aspirin (ASPIR 81) 81 Mg Tablet.dr, 1 TAB PO QDAY, TAB 08/04/16 Cyanocobalamin (Vitamin B-12) (B-12) 1,000 Mcg Tablet.er, 1 TAB PO twice a week 08/04/16 Reviewed Nurses Notes: Yes Hx Smoking: No Smoking Status: Never Smoker Exposure to Second Hand Smoke?: Yes (IN CHILDHOOD) Hx Substance Use Disorder: No Hx Alcohol Use: No Constitutional Vital Sign - Last 24 Hours 07/23/18 07/23/18 07/23/18 07/23/18 08:23 08:23 08:30 08:34 Temp 97.5 Pulse 59 Resp 20 B/P (MAP) 162/88 162/88 (112) 162/89 (113) Pulse Ox 92 94 O2 Delivery Room Air 07/23/18 07/23/18 07/23/18 08:45 08:49 08:52 B/P (MAP) 143/76 (98) 143/81 (101) Pulse Ox 95 Physical Exam General: Alert, no acute distress. Skin: abrasion and two small punctures on left index finger at MCP joint. redness present around this area. Musculoskeletal: Normal motor function. Neuro: Normal sensation. Cardiovascular: Normal cap refill. Medical Decision Making ED Course/Re-evaluation ED Course Instructions for wound care provider. Started on Augmentin. Tetanus booster given. Decision to Disposition Date: Jul 23, 2018 Decision to Disposition Time: 08:50 Depart Departure Latest Vital Signs Vital Signs Date Time Temp Pulse Resp B/P (MAP) Pulse Ox O2 Delivery O2 Flow Rate FiO2 07/23/18 08:52 143/81 (101) 07/23/18 08:49 95 07/23/18 08:23 97.5 59 20 Room Air Impression: Primary Impression: Cat bite of finger Condition: Improved Disposition: HOME OR SELF-CARE Referrals: HANNAH BARAHONA MD (PCP) New Scripts Amoxicillin/Pot Clav 875-125 Mg Tab (AUGMENTIN 875-125 TABLET) 1 Each Tablet 1 TAB PO Q12H, #20 TAB 0 Refills Prov: HANG MODI MD 07/23/18 Patient Instructions: Animal Bite (ED) Additional Instructions: Wound Care: Wash the wound once a day with soap and water. Dry the wound and apply a small amount of antibiotic ointment with a clean bandage. Pain Control: Use Tylenol or ibuprofen for pain. Using and ice pack can help reduce swelling. Antibiotic: Augmentin 875/125, one tablet twice a day for 10 days. Problem Qualifiers Primary Impression: Cat bite of finger Encounter type: initial encounter Qualified Codes: S61.259A - Open bite of unspecified finger without damage to nail, initial encounter; W55.01XA - Bitten by cat, initial encounter HANG MODI MD Jul 23, 2018 08:33
[2018-07-23] MEDS ORDERED: DIPHTH/TETANUS/ACEL. PERTUSSIS IM ONLY ONE (08:50)
[2018-07-23] MEDS ORDERED: AMOX-559 PO (08:51)
[2018-07-23 08:52] VITALS: BP 143/81
== END 2018-07-23 09:05 | disposition home or self-care (01) ==
LOC: ER 08:33
DX: S61.251A Open bite of left index finger without damage to nail, initial encounter (principal); W55.01XA Bitten by cat, initial encounter
CPT/HCPCS: 90471; 90715; 99283

== ENCOUNTER → 2018-11-16 | Outpatient (CLI) | payer MEDICARE, OTHER ==
[~2018-11-16] MED LIST changes: -AMLO2.5T76 PO; +AMLO2.5T78 PO; +AMOX-559 PO; -ROS10 PO; +ROSU10TA PO
--- NOTE | 2018-11-17 08:27 | RADIOLOGY IMAGING REPORT ---
FACILITY: [facility] PATIENT NAME: EDITH FREITAS : [id number] MR: [id number] V: [id number] EXAM DATE: [id number] ORDERING PHYSICIAN: HANNAH BARAHONA TECHNOLOGIST: Karina Ramos PROCEDURE:BILATERAL DIGITAL SCREENING MAMMOGRAM WITH CAD ASSISTED INTERPRETATION COMPARISON:Prior mammograms 04/14/17, 04/17/15, 03/30/14, 08/24/12. INDICATIONS:Screening FINDINGS: There are scattered areas of fibroglandular density throughout the breasts. The parenchymal pattern has remained stable allowing for difference in mammographic technique & patient positioning. DIAGNOSTIC CATEGORY 1--NEGATIVE. RECOMMENDATIONS: ROUTINE MAMMOGRAM AND CLINICAL EVALUATION. IMPRESSION: BIRADS 1: Negative. No significant abnormality is seen. Dictated by: Jessika Alvarez M.D. on 11/16/2018 at 16:28 Transcribed by: INGA on 11/17/2018 at 8:16 Approved by: Jessika Alvarez M.D. on 11/17/2018 at 8:26 [facility]
== END ==
LOC: MAMO 01:24
PROVIDERS: ATTEND Emergency Medicine
DX: Z12.31 Encounter for screening mammogram for malignant neoplasm of breast (principal)
CPT/HCPCS: 77063; 77067

== ENCOUNTER → 2018-11-18 | Outpatient (CLI) | payer MEDICARE, OTHER | LOC: LAB 09:47 | PROVIDERS: ATTEND Emergency Medicine | DX: E03.9 Hypothyroidism, unspecified (principal) | CPT/HCPCS: 36415; 84443 ==

== ENCOUNTER → 2019-01-18 | Outpatient (CLI) | payer MEDICARE, OTHER | LOC: LAB 11:22 | PROVIDERS: ATTEND Emergency Medicine | DX: E03.9 Hypothyroidism, unspecified (principal) | CPT/HCPCS: 36415; 84443 ==

== ENCOUNTER → 2019-02-25 | Outpatient (CLI) | payer MEDICARE, OTHER | LOC: AUD 10:00 | PROVIDERS: ATTEND Emergency Medicine | DX: H90.3 Sensorineural hearing loss, bilateral (principal) | CPT/HCPCS: 92552 ==

== ENCOUNTER → 2019-02-25 | Outpatient (CLI) | payer MEDICARE, OTHER ==
[~2019-02-25] MED LIST changes: +APIX5TAB PO
[2019-02-25 09:53] LABS: PLATELET COUNT, AUTOMATED 178 K/uL (150-450)
[2019-02-25 10:29] LABS: LDL CHOLESTEROL 118 mg/dl
== END ==
LOC: LAB 09:32
PROVIDERS: ATTEND Emergency Medicine
DX: E78.00 Pure hypercholesterolemia, unspecified (principal); E03.9 Hypothyroidism, unspecified; I10 Essential (primary) hypertension
CPT/HCPCS: 36415; 82040; 82247; 82310; 82374; 82435; 82465; 82565; 82947; 83718; 84075; 84132; 84155; 84295; 84443; 84450; 84460; 84478; 84520; 85025

== ENCOUNTER 2019-03-15 02:29 | Emergency (ER) | payer MEDICARE, OTHER ==
--- NOTE | 2019-03-15 02:33 | ER Report ---
History and Physical Time Seen By MD: 02:21 HPI/ROS CHIEF COMPLAINT: Left knee swelling HISTORY OF PRESENT ILLNESS: 78-year-old female on eloquent list for chronic anticoagulation. She was previously on warfarin and was recently switched over to L quest. Tonight. Patient was in the kitchen doing the dishes when she twisted her knee. She felt a pulling sensation and a brief pain that resolved. She was able to ambulate normal. She did not fall to the ground. Hours later she noted that her knee had started to swell spontaneously. It became quite large over several hours. It became somewhat painful. She did wrap it with Redd wrap and apply some ice packs, which did not seem to slow down or improve it. She ended up calling EMS to bring her in for evaluation. Patient states she has a distant history of a hemarthrosis 5 years ago when she was on warfarin. She at that time had an arthrocentesis. I discussed the option of arthrocentesis to evaluate her knee. Patient declined. Allergies: Coded Allergies: niacin (Verified Allergy, Intermediate, Itching, RASH, 03/15/19) REDD Inhibitors (Unverified Adverse Reaction, Intermediate, cough, 03/15/19) Eofgoig-Tjh-Txb Reductase Inhibitor (Verified Adverse Reaction, Intermediate, WEAKNESS IN LEGS, 03/15/19) rosuvastatin (Verified Adverse Reaction, Intermediate, Muscle symptoms, 03/15/19) tetracycline (Verified Adverse Reaction, Intermediate, LOWERED BLOOD COUNT, 03/15/19) clindamycin (Verified Adverse Reaction, Mild, DIARRHEA, 03/15/19) Uncoded Allergies: PABA (Allergy, Mild, RASH, 03/31/18) FOUND IN SUN SCREENS Home Meds Active Scripts Losartan Potassium (LOSARTAN POTASSIUM) 100 Mg Tablet, 1 TAB PO QDAY, #90 TAB 3 Refills Prov:HANNAH BARAHONA MD 03/10/19 Apixaban (ELIQUIS) 5 Mg Tablet, 5 MG PO BID, #60 TAB 11 Refills Prov:HANNAH BARAHONA MD 03/01/19 Ezetimibe (ZETIA) 10 Mg Tablet, 10 MG PO QDAY, #90 TAB 3 Refills Prov:HANNAH BARAHONA MD 02/25/19 Sotalol Hcl (SOTALOL) 160 Mg Tablet, 1 TAB PO BID, #180 TAB 3 Refills Prov:HANNAH BARAHONA MD 02/04/19 Levothyroxine Sodium (LEVOTHYROXINE SODIUM) 50 Mcg Tablet, 50 MCG PO 4XW, #48 TAB 3 Refills 50 mcg tab po 4 times weekly, alternating with 75 mcg tabs. Prov:HANNAH BARAHONA MD 01/18/19 Levothyroxine Sodium (LEVOTHYROXINE SODIUM) 75 Mcg Tablet, 75 MCG PO 3XW, #36 TAB 3 Refills Alternate with 50 mcg tab. Prov:HANNAH BARAHONA MD 01/18/19 Nitroglycerin (NITROGLYCERIN) 0.4 Mg Tab.subl, 1 TAB SL Q5MIN PRN for chest pain, #25 TAB 1 Refill Prov:DANUTA AGUILERA PHARMD 06/09/18 Cholecalciferol (Vitamin D3) (VITAMIN D3) 1,000 Unit Tablet, 1 TAB PO DAILY, #1 TAB Prov:HANNAH BARAHONA MD 05/25/17 Reported Medications Aspirin (ASPIR 81) 81 Mg Tablet.dr, 1 TAB PO QDAY, TAB 08/04/16 Cyanocobalamin (Vitamin B-12) (B-12) 1,000 Mcg Tablet.er, 1 TAB PO twice a week 08/04/16 Hx Smoking: No Smoking Status: Never Smoker Exposure to Second Hand Smoke?: Yes (IN CHILDHOOD) Hx Substance Use Disorder: No Hx Alcohol Use: No Constitutional Vital Sign - Last 24 Hours 03/15/19 02:30 Temp 97.9 Pulse 55 Resp 14 B/P (MAP) 186/136 Pulse Ox 95 O2 Delivery Room Air Physical Exam General Appearance: The patient is alert, has no immediate need for airway protection and no current signs of toxicity. Vital signs stable, afebrile, pulse ox normal Eyes: Pupils equal and round no injection. Respiratory: Chest is non tender, lungs are clear to auscultation. Cardiac: regular rate and rhythm Gastrointestinal: Abdomen is soft and non tender, no masses, bowel sounds normal. Musculoskeletal: Neck: Neck is supple and non tender. Extremities have full range of motion and are non tender., Examination of the left lower extremity reveals a large knee effusion, both knees show mild arthritic changes. There is only a trace warmth. There is no tenderness on palpation. Patient's range of motion is significantly limited. Skin: No rashes or lesions. DIFFERENTIAL DIAGNOSIS: After history and physical exam differential diagnosis was considered for hemarthrosis, arthritis flare, gout, Medical Decision Making EKG/Imaging Imaging X-ray: Three-view left knee was obtained. I viewed the images myself on the PACS system. My interpretation of the images is: No fracture no dislocation, mild degenerative changes, large joint effusion noted. The radiologist interpretation had no clinically significant variation from this interpretation. ED Course/Re-evaluation ED Course Patient was admitted to an examination room. H&P was done. The differential diagnoses was considered. Patient with a large joint swelling, which rapidly occurred after a mild twisting injury. Patient is on elk was. I suspect she tore a small vessel which is bleeding into her joint. Patient has no acute warmth or tenderness on palpation of the joint. There is a tense effusion. Patient's diagnostic x-rays were unremarkable. She was placed in Redd wrap and a knee immobilizer. She is advised to elevated, apply ice packs for 2-3 days then switch to heat to help reabsorption. The option of arthrocentesis was discussed with the patient. She is reluctant to undergo the procedure. Patient Is advised to follow-up with her primary care if unimproved in 3-5 days. Decision to Disposition Date: Mar 15, 2019 Decision to Disposition Time: 03:21 Depart Departure Latest Vital Signs Vital Signs Date Time Temp Pulse Resp B/P (MAP) Pulse Ox O2 Delivery O2 Flow Rate FiO2 03/15/19 02:30 97.9 55 14 186/136 95 Room Air Impression: Primary Impression: Hemarthrosis, left knee Additional Impression: Chronic anticoagulation Condition: Improved Disposition: HOME OR SELF-CARE Referrals: HANNAH BARAHONA MD (PCP) Patient Instructions: Hemarthrosis (ED) Additional Instructions: Wear Redd wrap and a knee immobilizer for 5 days. Ply ice packs to your knee for 2-3 days Follow-up with Dr. atkinson if unimproved in 3-5 days Problem Qualifiers OLGA ALCARAZ DO Mar 15, 2019 02:33
--- NOTE | 2019-03-15 03:25 | RADIOLOGY IMAGING REPORT ---
FACILITY: [facility] - [place] PATIENT NAME: Nazanin Castro : 1940 MR: [id number] V: [id number] EXAM DATE: ORDERING PHYSICIAN: OLGA ALCARAZ TECHNOLOGIST: [place] [facility] [place] Nazanin Castro : 1940 Visit/Account:[id number] Date of Sevice: 03/15/2019 KNEE 3 VIEW LEFT HISTORY: Knee swelling and anteromedial and lateral pain. On Eliquis. Twisting injury. COMPARISON: 12/14/2013. TECHNIQUE: AP, oblique, and crosstable lateral views of the left knee. FINDINGS: There is no fracture or dislocation. Large joint effusion. Stable 0.2 (AP) by 0.4 (CC) calc ification the posterior soft tissues of the distal thigh. IMPRESSION: 1. Large joint effusion. No acute osseous abnormality of the left knee. Report Dictated By: Key Garcia at 03/15/2019 3:05 AM Report E-Signed By: Key Garcia at 03/15/2019 3:07 AM WSN:[id number]
[2019-03-15 03:30] VITALS: BP 166/84
== END 2019-03-15 03:54 | disposition home or self-care (01) ==
LOC: ER 02:33
DX: M25.062 Hemarthrosis, left knee (principal); Z79.01 Long term (current) use of anticoagulants
CPT/HCPCS: 73562; 99283; L1830

== ENCOUNTER → 2019-03-15 | Outpatient (CLI) | payer MEDICARE, OTHER | LOC: AMB 01:43 | PROVIDERS: ATTEND Nurse Practitioner | DX: M25.562 Pain in left knee (principal); M79.89 Other specified soft tissue disorders | CPT/HCPCS: A0425; A0429 ==